=== PATIENT | male | born 1970 | race Caucasian/White ===

== ENCOUNTER 2017-05-01 09:01 | Emergency (ER) | payer OTHER ==
[2017-05-01 09:38] LABS: HEMOGLOBIN 16.2 gm/dl (14.0-17.5); RED BLOOD COUNT 4.94 M/UL (4.20-5.50); WHITE BLOOD COUNT 6.4 K/UL (4.5-11.0)
[2017-05-01 10:10] LABS: BUN/CREATININE RATIO 13 (0-10)
== END 2017-05-01 14:00 | disposition home or self-care (01) ==
LOC: ER1 09:01
PROVIDERS: Emergency Medicine
DX: R51 Headache (principal); I10 Essential (primary) hypertension; Z79.899 Other long term (current) drug therapy
CPT/HCPCS: 36415; 70450; 71010; 80053; 82550; 82553; 83874; 84484; 85025; 93005; 96360; 99284